=== PATIENT | female | born 1995 | race Caucasian/White ===

== ENCOUNTER 2018-08-02 19:58 | Outpatient (CLI) | payer OTHER ==
[2018-08-02 21:04] LABS: ADD UMIC YES; UR ASCORBIC ACID NEGATIVE (NEGATIVE); UR BILIRUBIN (Dip) NEGATIVE (NEGATIVE); UR BLOOD (Dip) NEGATIVE (NEGATIVE); UR CLARITY CLOUDY (CLEAR); UR COLOR AMBER (YELLOW); UR GLUCOSE (Dip) NEGATIVE (NEGATIVE); UR KETONES (Dip) NEGATIVE (NEGATIVE); UR LEUKOCYTE ESTERASE (Dip) 1+ Leu/ul (NEGATIVE); UR MUCUS FEW /HPF (NONE SEEN); UR NITRITE (Dip) NEGATIVE (NEGATIVE); UR RBC 2 /HPF (0-5); UR SPECIFIC GRAVITY (Dip) 1.025 (1.003-1.030); UR SQUAMOUS EPITHELIAL CELL MODERATE /HPF (FEW); UR TOTAL PROTEIN (Dip) NEGATIVE (NEGATIVE); UR UROBILINOGEN (Dip) NEGATIVE (NEGATIVE); UR WBC 9 /HPF (0-5)
== END 2018-08-02 22:15 | disposition home or self-care (01) ==
LOC: OBT 19:58 → L-D 20:00 → OBT 22:15
DX: O26.893 Other specified pregnancy related conditions, third trimester (principal); Z3A.30 30 weeks gestation of pregnancy; R10.2 Pelvic and perineal pain
CPT/HCPCS: 76815; 76818; 81001; 87086

== ENCOUNTER 2018-08-31 08:51 | Outpatient (CLI) | payer OTHER ==
[2018-08-31] MEDS: TERBUTALINE 1 MG/ML INJ SC (10:10)
[2018-08-31] MEDS: LACTATED RINGER'S 1,000 ML IV (10:10)
[2018-08-31 10:17] LABS: ADD UMIC YES; UR ASCORBIC ACID NEGATIVE (NEGATIVE); UR BACTERIA FEW /HPF (NONE SEEN); UR BILIRUBIN (Dip) NEGATIVE (NEGATIVE); UR BLOOD (Dip) NEGATIVE (NEGATIVE); UR CLARITY SLIGHTLY CLOUDY (CLEAR); UR COLOR YELLOW (YELLOW); UR GLUCOSE (Dip) NEGATIVE (NEGATIVE); UR KETONES (Dip) NEGATIVE (NEGATIVE); UR LEUKOCYTE ESTERASE (Dip) 1+ Leu/ul (NEGATIVE); UR NITRITE (Dip) NEGATIVE (NEGATIVE); UR RBC 1 /HPF (0-5); UR SPECIFIC GRAVITY (Dip) 1.014 (1.003-1.030); UR SQUAMOUS EPITHELIAL CELL MODERATE /HPF (FEW); UR TOTAL PROTEIN (Dip) NEGATIVE (NEGATIVE); UR UROBILINOGEN (Dip) NEGATIVE (NEGATIVE); UR WBC 5 /HPF (0-5)
== END 2018-08-31 13:56 | disposition home or self-care (01) ==
LOC: OBT 08:51 → L-D 08:51 → OBT 13:56 → L-D 14:00
DX: O62.9 Abnormality of forces of labor, unspecified (principal); Z3A.34 34 weeks gestation of pregnancy
CPT/HCPCS: 36415; 81001; 87086; 96360; 96361; 96372

== ENCOUNTER 2018-09-04 20:13 | Outpatient (CLI) | payer OTHER | END 2018-09-04 22:00 | disposition home or self-care (01) | LOC: OBT 20:13 → L-D 20:14 → OBT 22:00 | DX: O36.8130 Decreased fetal movements, third trimester, not applicable or unspecified (principal); Z3A.35 35 weeks gestation of pregnancy | CPT/HCPCS: 76818 ==

== ENCOUNTER 2018-09-19 22:59 | Outpatient (CLI) | payer OTHER ==
[2018-09-20 00:42] LABS: ADD UMIC NO; UR ASCORBIC ACID NEGATIVE (NEGATIVE); UR BACTERIA FEW /HPF (NONE SEEN); UR BILIRUBIN (Dip) NEGATIVE (NEGATIVE); UR BLOOD (Dip) NEGATIVE (NEGATIVE); UR CLARITY SLIGHTLY CLOUDY (CLEAR); UR COLOR YELLOW (YELLOW); UR GLUCOSE (Dip) NEGATIVE (NEGATIVE); UR KETONES (Dip) NEGATIVE (NEGATIVE); UR LEUKOCYTE ESTERASE (Dip) NEGATIVE Leu/ul (NEGATIVE); UR MUCUS MODERATE /HPF (NONE SEEN); UR NITRITE (Dip) NEGATIVE (NEGATIVE); UR RBC 2 /HPF (0-5); UR SPECIFIC GRAVITY (Dip) 1.024 (1.003-1.030); UR SQUAMOUS EPITHELIAL CELL MODERATE /HPF (FEW); UR TOTAL PROTEIN (Dip) NEGATIVE (NEGATIVE); UR UROBILINOGEN (Dip) NEGATIVE (NEGATIVE); UR WBC 5 /HPF (0-5)
== END 2018-09-20 02:43 | disposition home or self-care (01) ==
LOC: OBT 22:59 → L-D 23:07
DX: O99.513 Diseases of the respiratory system complicating pregnancy, third trimester (principal); J45.909 Unspecified asthma, uncomplicated; Z3A.37 37 weeks gestation of pregnancy
CPT/HCPCS: 76818; 81001; 81003

== ENCOUNTER 2018-10-02 12:35 | Outpatient (CLI) | payer OTHER ==
[2018-10-02 13:28] LABS: ADD UMIC NO; UR ASCORBIC ACID NEGATIVE (NEGATIVE); UR BILIRUBIN (Dip) NEGATIVE (NEGATIVE); UR BLOOD (Dip) NEGATIVE (NEGATIVE); UR CLARITY CLEAR (CLEAR); UR COLOR STRAW (YELLOW); UR GLUCOSE (Dip) NEGATIVE (NEGATIVE); UR KETONES (Dip) NEGATIVE (NEGATIVE); UR LEUKOCYTE ESTERASE (Dip) NEGATIVE Leu/ul (NEGATIVE); UR NITRITE (Dip) NEGATIVE (NEGATIVE); UR SPECIFIC GRAVITY (Dip) 1.004 (1.003-1.030); UR TOTAL PROTEIN (Dip) NEGATIVE (NEGATIVE); UR UROBILINOGEN (Dip) NEGATIVE (NEGATIVE)
[2018-10-02 13:56] LABS: RUPTURE FETAL MEMBRANES NEGATIVE (NEGATIVE)
== END 2018-10-02 16:43 | disposition home or self-care (01) ==
LOC: OBT 12:35 → L-D 12:36 → OBT 16:43
DX: O62.9 Abnormality of forces of labor, unspecified (principal); Z3A.39 39 weeks gestation of pregnancy
CPT/HCPCS: 76815; 76818; 81003; 84112

== ENCOUNTER 2018-10-09 12:11 | Inpatient (IN) | payer OTHER ==
[2018-10-09] MEDS ORDERED: LIDOCAINE 1% (MPF) 30 ML INJ INJ (13:00)
[2018-10-09] MEDS ORDERED: BUTORPHANOL 2 MG INJ IV (13:00)
[2018-10-09] MEDS ORDERED: OXYCODONE/ASPIRIN (4.88/325) TAB PO (13:00)
[2018-10-09] MEDS ORDERED: CARBOPROST 250 MCG INJ IM (13:00)
[2018-10-09] MEDS ORDERED: METHYLERGONOVINE 0.2 MG INJ IM (13:00)
[2018-10-09] MEDS ORDERED: MISOPROSTOL 200 MCG TAB PR (13:00)
[2018-10-09] MEDS ORDERED: OXYTOCIN 30 UNITS/LR 500 ML IV (13:00)
[2018-10-09] MEDS: LACTATED RINGER'S 1,000 ML IV ×2 (14:36→20:32)
[2018-10-09] MEDS: AMPICILLIN 2 GM/NS (PMX) 100 ML IV (14:37)
[2018-10-09 14:38] LABS: ADD MAN DIFF? NO
[2018-10-09 14:43] LABS: WHITE BLOOD COUNT 9.2 10^3/ul (4.8-10.8)
[2018-10-09 14:43] LABS: BASOPHILS % 0.4 % (0.0-2.0); EOSINOPHILS # 0.1 10^3/ul (0.0-0.5); EOSINOPHILS % 1.3 % (0.0-7.0); HEMATOCRIT 38.6 % (37.0-47.0); HEMOGLOBIN 12.8 g/dl (12.0-16.0); LYMPHOCYTES # 2.4 10^3/ul (0.8-2.9); LYMPHOCYTES % 25.8 % (15.0-51.0); MEAN CORPUSCULAR HEMOGLOBIN 29.1 pg (29.0-33.0); MEAN CORPUSCULAR HGB CONC 33.2 g/dl (32.0-37.0); MEAN CORPUSCULAR VOLUME 87.7 fl (82.0-101.0); MEAN PLATELET VOLUME 11.3 fl (7.4-10.4); MONOCYTE # 0.8 10^3/ul (0.3-0.9); MONOCYTES % 8.9 % (0.0-11.0); NEUTROPHIL # 5.7 10^3/ul (1.6-7.5); NEUTROPHILS % 62.4 % (39.0-77.0); PLATELET COUNT 199 10^3/UL (140-415); RED CELL DISTRIBUTION WIDTH 13.7 % (11.5-14.5)
[2018-10-09 15:00] LABS: PARTIAL THROMBOPLASTIN TIME 24.8 Sec (23.0-35.0); PROTIME 12.3 Sec (11.9-14.9)
[2018-10-09 15:28] LABS: HEPATITIS B SURFACE ANTIGEN NEGATIVE (NEGATIVE)
[2018-10-09 16:32] LABS: RAPID PLASMA REAGIN NONREACTIVE (NR)
[2018-10-09] MEDS: AMPICILLIN 1 GM/NS (PMX) 50 ML IV ×2 (18:25→22:20)
[2018-10-09] MEDS: OXYTOCIN 30 UNITS/LR 500 ML IV (18:28)
[2018-10-10] MEDS: LACTATED RINGER'S 1,000 ML IV ×5 (00:34→21:27)
[2018-10-10] MEDS: AMPICILLIN 1 GM/NS (PMX) 50 ML IV ×6 (02:24→21:48)
[2018-10-10] MEDS: FAMOTIDINE 20 MG TAB PO (03:40)
[2018-10-10] MEDS ORDERED: DIPHENHYDRAMINE 50 MG INJ IV (12:00)
[2018-10-10] MEDS ORDERED: HYDROmorphONE 0.5 MG/0.5 ML SYG IV ×2 (12:00)
[2018-10-10] MEDS ORDERED: NALOXONE (0.4 MG/ML) INJ IV (12:00)
[2018-10-10] MEDS ORDERED: KETOROLAC 30 MG INJ IV (12:00)
[2018-10-10] MEDS: FENTAnyl 2MCG/ML-ROPIV 0.2% 100 ML BAG EPI (20:57)
[2018-10-11] MEDS: ONDANSETRON 4 MG INJ IV (01:09)
[2018-10-11] MEDS ORDERED: MINERAL OIL LIGHT 10 ML VIAL TOP (01:30)
[2018-10-11] MEDS: AMPICILLIN 1 GM/NS (PMX) 50 ML IV ×6 (02:00→21:22)
[2018-10-11] MEDS: FENTAnyl 2MCG/ML-ROPIV 0.2% 100 ML BAG EPI (02:15)
[2018-10-11] MEDS: ACETAMINOPHEN 325 MG TAB PO (02:16)
[2018-10-11] MEDS: GENTAMICIN 80 MG/NS (PMX) 50 ML IVPB ×4 (02:32→22:49)
[2018-10-11 02:49] LABS: ADD MAN DIFF? NO
[2018-10-11 02:50] LABS: WHITE BLOOD COUNT 14.3 10^3/ul (4.8-10.8)
[2018-10-11 02:50] LABS: BASOPHILS % 0.2 % (0.0-2.0); EOSINOPHILS % 0.1 % (0.0-7.0); HEMATOCRIT 37.1 % (37.0-47.0); HEMOGLOBIN 12.4 g/dl (12.0-16.0); LYMPHOCYTES # 1.3 10^3/ul (0.8-2.9); LYMPHOCYTES % 9.2 % (15.0-51.0); MEAN CORPUSCULAR HEMOGLOBIN 28.9 pg (29.0-33.0); MEAN CORPUSCULAR HGB CONC 33.4 g/dl (32.0-37.0); MEAN CORPUSCULAR VOLUME 86.5 fl (82.0-101.0); MEAN PLATELET VOLUME 11.3 fl (7.4-10.4); MONOCYTE # 1.2 10^3/ul (0.3-0.9); MONOCYTES % 8.1 % (0.0-11.0); NEUTROPHIL # 11.7 10^3/ul (1.6-7.5); NEUTROPHILS % 81.8 % (39.0-77.0); PLATELET COUNT 170 10^3/UL (140-415); RED BLOOD COUNT 4.29 10^6/ul (4.20-5.40); RED CELL DISTRIBUTION WIDTH 13.6 % (11.5-14.5)
[2018-10-11 03:18] LABS: LACTIC ACID 1.8 mmol/L (0.5-2.0)
[2018-10-11 03:20] LABS: ANION GAP 10 (5-13); BLOOD UREA NITROGEN 7 mg/dl (7-20); CALCIUM 8.7 mg/dl (8.4-10.2); CARBON DIOXIDE 18 mmol/L (21-31); CHLORIDE 111 mmol/L (97-110); CREATININE 0.65 mg/dl (0.44-1.00); Estimated GFR > 60 mL/min (>60); GLUCOSE 72 mg/dl (70-220); POTASSIUM 4.3 mmol/L (3.5-5.1); SODIUM 139 mmol/L (135-144)
[2018-10-11] MEDS: IBUPROFEN 600 MG TAB PO ×3 (07:23→17:36)
[2018-10-11] MEDS: OXYTOCIN 30 UNITS/LR 500 ML IV ×3 (07:28→11:40)
[2018-10-11 07:31] LABS: CBV Base Excess -4.6 mmol/L; CBV COHb 1.4 %; CBV Oxygen Sat 64.1 mmHG; CBV Total Hemglobin 17.2 g/dl; Cord Blood Venous AADO2 83.1 mmHg; Cord Blood Venous pO2 25.9 mmHG (15.0-45.0); Fraction OxyHgb Cord Venous 62.4 %; MODE ROOM AIR; MetHgb Cord Venous 1.3 %; Sample Type CBV; Site CORD
[2018-10-11] MEDS ORDERED: DIPHENHYDRAMINE 50 MG INJ IV (08:00)
[2018-10-11] MEDS ORDERED: DIBUCAINE 1% 30 GM OINT TOP (08:00)
[2018-10-11] MEDS ORDERED: MISOPROSTOL 200 MCG TAB PR (08:00)
[2018-10-11] MEDS ORDERED: ONDANSETRON 4 MG TAB PO (08:00)
[2018-10-11] MEDS ORDERED: NA PHOSPHATE/BIPHOS 133 ML ENEMA PR (08:00)
[2018-10-11] MEDS ORDERED: ONDANSETRON 4 MG INJ IV (08:00)
[2018-10-11] MEDS ORDERED: HYDROCODONE/APAP (5/325) TAB PO (08:00)
[2018-10-11] MEDS ORDERED: OXYTOCIN 30 UNITS/LR 500 ML IV (08:00)
[2018-10-11] MEDS ORDERED: SENNA/DOCUSATE NA (8.6MG/50MG) TAB PO (08:00)
[2018-10-11] MEDS ORDERED: MAGNESIUM HYDROXIDE 30ML CUP PO (08:00)
[2018-10-11] MEDS ORDERED: CARBOPROST 250 MCG INJ IM (08:00)
[2018-10-11] MEDS ORDERED: DIPHENHYDRAMINE 25 MG CAP PO (08:00)
[2018-10-11] MEDS: LACTATED RINGER'S 1,000 ML IV* ×2 (12:00→15:31)
[2018-10-11] MEDS: SENNA/DOCUSATE NA (8.6MG/50MG) TAB PO ×2 (14:00→21:22)
[2018-10-11] MEDS: WITCH HAZEL/GLYCERIN PAD PR (15:01)
[2018-10-11] MEDS: BENZOCAINE 20% 56 ML SPRAY TOP (15:01)
[2018-10-11] MEDS: LANOLIN HPA 1 PKT TOP (15:01)
[2018-10-11] MEDS: HYDROCODONE/APAP (5/325) TAB PO (16:42)
[2018-10-12] MEDS: IBUPROFEN 600 MG TAB PO ×5 (00:52→23:36)
[2018-10-12] MEDS: AMPICILLIN 1 GM/NS (PMX) 50 ML IV ×2 (00:52→05:40)
[2018-10-12] MEDS: HYDROCODONE/APAP (5/325) TAB PO (03:33)
[2018-10-12 09:29] LABS: ADD MAN DIFF? NO; BASOPHIL # 0.1 10^3/ul (0.0-0.1); BASOPHILS % 0.3 % (0.0-2.0); EOSINOPHILS # 0.3 10^3/ul (0.0-0.5); EOSINOPHILS % 1.9 % (0.0-7.0); HEMATOCRIT 34.7 % (37.0-47.0); HEMOGLOBIN 11.2 g/dl (12.0-16.0); LYMPHOCYTES # 3.5 10^3/ul (0.8-2.9); LYMPHOCYTES % 22.5 % (15.0-51.0); MEAN CORPUSCULAR HEMOGLOBIN 28.7 pg (29.0-33.0); MEAN CORPUSCULAR HGB CONC 32.3 g/dl (32.0-37.0); MONOCYTES % 6.3 % (0.0-11.0); NEUTROPHIL # 10.7 10^3/ul (1.6-7.5); NEUTROPHILS % 68.4 % (39.0-77.0); PLATELET COUNT 170 10^3/UL (140-415)
[2018-10-12 09:29] LABS: WHITE BLOOD COUNT 15.7 10^3/ul (4.8-10.8)
[2018-10-12] MEDS: SENNA/DOCUSATE NA (8.6MG/50MG) TAB PO ×2 (09:36→21:41)
[2018-10-13] MEDS: IBUPROFEN 600 MG TAB PO ×2 (05:40→12:23)
[2018-10-13 08:21] LABS: ADD MAN DIFF? NO
[2018-10-13 08:25] LABS: BASOPHILS % 0.3 % (0.0-2.0); EOSINOPHILS # 0.3 10^3/ul (0.0-0.5); EOSINOPHILS % 2.6 % (0.0-7.0); HEMATOCRIT 31.2 % (37.0-47.0); HEMOGLOBIN 10.4 g/dl (12.0-16.0); LYMPHOCYTES # 2.7 10^3/ul (0.8-2.9); LYMPHOCYTES % 26.4 % (15.0-51.0); MEAN CORPUSCULAR HEMOGLOBIN 29.5 pg (29.0-33.0); MEAN CORPUSCULAR HGB CONC 33.3 g/dl (32.0-37.0); MEAN CORPUSCULAR VOLUME 88.4 fl (82.0-101.0); MEAN PLATELET VOLUME 11.6 fl (7.4-10.4); MONOCYTE # 0.7 10^3/ul (0.3-0.9); MONOCYTES % 6.9 % (0.0-11.0); NEUTROPHIL # 6.3 10^3/ul (1.6-7.5); NEUTROPHILS % 62.9 % (39.0-77.0); PLATELET COUNT 165 10^3/UL (140-415); RED BLOOD COUNT 3.53 10^6/ul (4.20-5.40)
[2018-10-13 08:25] LABS: WHITE BLOOD COUNT 10.1 10^3/ul (4.8-10.8)
[2018-10-13] MEDS: MEASLES,MUMPS,RUBELLA VACCINE INJ SC* (09:00)
[2018-10-13] MEDS: VARICELLA VACCINE LIVE/PF 1,350 UNIT/0.5 ML ML SC* (09:00)
[2018-10-13] MEDS: SENNA/DOCUSATE NA (8.6MG/50MG) TAB PO (09:19)
[2018-10-13] MEDS: DIPHTH/TET/ACEL PERTUSS (ADULT) 0.5 ML VIAL IM* (09:20)
== END 2018-10-13 15:38 | disposition home or self-care (01) | DRG 807 ==
LOC: PP1 10-11 13:58 → OBT 12:11 → L-D 12:12 → OBT 12:12 → L-D 12:11
PROVIDERS: Specialist
PROC: 3E033VJ Introduction of Other Hormone into Peripheral Vein, Percutaneous Approach (ICD-10-PCS; 2018-10-10)
PROC: 10E0XZZ Delivery of Products of Conception, External Approach (ICD-10-PCS; principal; 2018-10-11)
PROC: 0HQ9XZZ Repair Perineum Skin, External Approach (ICD-10-PCS; 2018-10-11)
DX: O48.0 Post-term pregnancy (principal); O69.81X0 Labor and delivery complicated by cord around neck, without compression, not applicable or unspecified; Z37.0 Single live birth; Z3A.40 40 weeks gestation of pregnancy
CPT/HCPCS: 36415; 62322; 76815; 80048; 82803; 83605; 85025; 85610; 85730; 86592; 86850; 86870; 86900; 86901; 87340; 88307; 90716; 99464